=== PATIENT | female | born 1995 | race Hispanic/Latino ===

== ENCOUNTER 2021-09-10 22:50 | Emergency (ER) | payer OTHER ==
--- OUTSIDE RECORDS SUMMARY | 2021-09-10 22:55 | XMS REPORT | Continuity of Care Document ---
:1995 Author Organization [facility] Address [address] [place] [address] Care Team Providers Name Role Phone Reji Attending Clinician Unavailable MARCELA Attending Clinician Unavailable Reji Admitting Clinician Unavailable MARCELA Admitting Clinician Unavailable Payers Payer Name Policy Type Policy Number Effective Date Expiration Date S malina [facility] [id number] 2016 00:00:00 [facility] (MEDICAID HMO) Problems Condition Condition Condition Status Onset Resolution Last Treating Co mments Source Name Details Category Date Date Treatment Clinician Date External External Problem Active 2020-0 [place] hemorrhoid Hemorrhoid 6 da s s 00:00: Medical 00 Group Constipati Constipati Problem Active 2020-0 [facility] on on 01-14 da 00:00: Medical 00 Group Seasonal Seasonal Problem Active 2020-0 [place] [facility] allergic Allergic 1-20 da rhinitis Rhinitis 00:00: Medica l 00 Group Allergies, Adverse Reactions, Alerts This patient has no known allergies or adverse reactions. Social History Smoking Status Start Date Stop Date Source Never Smoker [facility] Medications Ordered Filled Start Stop Current Ordering Indication Dosage Frequency Signature Comments Components Source Medication Medication Date Date Medication? Clinician (SIG) Name Name CitraNatal CitraNatal No CitraNatal [place] 90 DHA 90 DHA 90 DHA da (algal oil) (algal oil) (algal Medical 90 mg 90 mg oil) 90 mg Group iron-1 iron-1 iron-1 mg-50 mg-50 mg-50 mg-300 mg mg-300 mg mg-300 mg oral pack oral pack oral pack Take 1 dose Take 1 dose Take 1 pk by oral pk by oral dose pk by route for route for oral route 30 days. 30 days. for 30 days. clindamycin clindamycin No clindamyci [facility] HCl 300 mg HCl 300 mg n HCl 300 da capsule capsule mg capsule Med ical Take 1 Take 1 Take 1 Group capsule 3 capsule 3 capsule 3 times a day times a day times a by oral by oral day by route for 5 route for 5 oral route days. days. for 5 days. docusate docusate No 1capsul Q1D docusate [facility] sodium 100 sodium 100 e(s) sodium 100 da mg capsule mg capsule mg capsule Medical Take 1 Take 1 Take 1 Group capsule capsule capsule every day every day every day by oral by oral by oral route. route. route. ferrous ferrous No 1 Q1D ferrous [facility] gluconate gluconate gluconate da 240 mg (27 240 mg (27 240 mg (27 Medical mg iron) mg iron) mg iron) Shiva up tablet Take tablet Take tablet 1 tablet 1 tablet Take 1 every day every day tablet by oral by oral every day route. route. by oral route. ferrous ferrous No 1 Q1D ferrous [facility] sulfate 325 sulfate 325 sulfate da mg (65 mg mg (65 mg 325 mg (65 Medical iron) iron) mg iron) Group tablet Take tablet Take tablet 1 tablet 1 tablet Take 1 every day every day tablet by oral by oral every day route for route for by oral 30 days. 30 days. route for 30 days. Flucelvax Flucelvax No Flucelvax [place] Quad Quad Quad da Medical (PF) 60 mcg (PF) 60 mcg (PF) 60 Group (15 mcg x (15 mcg x mcg (15 4)/0.5 mL 4)/0.5 mL mcg x IM syringe IM syringe 4)/0.5 mL IM syringe fluconazole fluconazole No fluconazol [facility] 200 mg 200 mg e 200 mg da tablet Take tablet Take tablet Medical 1 tablet 1 tablet Take 1 Group every day every day tablet by oral by oral every day route for 3 route for 3 by oral days. days. route for 3 days. folic acid folic acid No folic acid [facility] 1 mg tablet 1 mg tablet 1 mg d a Take 1 Take 1 tablet Medical tablet tablet Take 1 Group every day every day tablet by oral by oral every day route. route. by oral route. hydrocortis hydrocortis No hydrocorti [place] one 2.5 % one 2.5 % sone 2.5 % da topical topical topical Medica l cream cream cream Group hydrocortis hydrocortis No hydrocorti [place] one 2.5 % one 2.5 % sone 2.5 % da topical topical topical Medica l cream with cream with cream with Group perineal perineal perineal applicator applicator applicator APPLY A APPLY A APPLY A THIN LAYER THIN LAYER THIN LAYER TO THE TO THE TO THE AFFECTED AFFECTED AFFECTED AREA(S) BY AREA(S) BY AREA(S) BY TOPICAL TOPICAL TOPICAL ROUTE 2-4 ROUTE 2-4 ROUTE 2-4 TIMESDAILY TIMESDAILY TIMESDAILY ibuprofen ibuprofen No ibuprofen [facility] 800 mg 800 mg 800 mg da tablet tablet tablet Medical Group omeprazole omeprazole No omeprazole [facility] 40 mg 40 mg 40 mg da capsule,del capsule,del capsule,de Medical ayed ayed layed Group release release release Take 1 Take 1 Take 1 capsule capsule capsule every day every day every day by oral by oral by oral route. route. route. ProAir HFA ProAir HFA No ProAir HFA [place] 90 90 90 da mcg/actuati mcg/actuati mcg/actuat Medical on aerosol on aerosol ion Shiva up inhaler inhaler aerosol Inhale 2 Inhale 2 inhaler puffs every puffs every Inhale 2 4 hours by 4 hours by puffs inhalation inhalation every 4 route. route. hours by inhalation route. Reglan 10 Reglan 10 No 1 Q6H Reglan 10 [place] mg tablet mg tablet mg tablet da Take 1 Take 1 Take 1 Medical tablet tablet tablet Group every 6 every 6 every 6 hours by hours by hours by oral route oral route oral route for 7 days. for 7 days. for 7 days. Sprintec Sprintec No 1 Q1D Sprintec [facility] (28) 0.25 (28) 0.25 (28) 0.25 da mg-35 mcg mg-35 mcg mg-35 mcg Medical tablet Take tablet Take tablet Group 1 tablet 1 tablet Take 1 every day every day tablet by oral by oral every day route. route. by oral route. True Metrix True Metrix No True M [facility] Glucose Glucose Metrix da Test Strip Test Strip Glucose Medical Take 1 Take 1 Test Strip Group strip 4 strip 4 Take 1 times a day times a day strip 4 by miscell. by miscell. times a route. route. day by miscell. route. TRUEplus TRUEplus No TRUEplus [facility] Lancets 30 Lancets 30 Lancets 30 da gauge gauge gauge Medical Group Immunizations Ordered Immunization Filled Immunization Date Status Commen ts Source Name Name HPV, quadrivalent HPV, quadrivalent 2009-12-26 Completed [place] 00:00:00 Medical Group Tdap Tdap 2009-12-26 Completed [place] 00:00:00 Medical Group HPV, quadrivalent HPV, quadrivalent 2009-08-28 Completed [place] 00:00:00 Medical Group HPV, quadrivalent HPV, quadrivalent 2009-02-25 Completed [place] 00:00:00 Medical Group MCV4, unspecified MCV4, unspecified 2009-02-25 Completed [place] formulation formulation 00:00:00 Medical Grou p Hep A, ped/adol, 2 Hep A, ped/adol, 2 2007-12-25 Completed [place] dose dose 00:00:00 Medical Group varicella varicella 2007-12-25 Completed [place] 00:00:00 Medical Group Hep A, ped/adol, 2 Hep A, ped/adol, 2 2006-10-17 Completed [place] dose dose 00:00:00 Medical Group MMR MMR 2001-07-18 Completed [place] 00:00:00 Medical Group MMR MMR 1998-07-16 Completed [place] 00:00:00 Medical Group varicella varicella 1998-07-16 Completed [place] 00:00:00 Medical Group Hep B, adolescent or Hep B, adolescent 1998-02-06 Completed [place] pediatric or pediatric 00:00:00 Medical Grou p Hep B, adolescent or Hep B, adolescent 1997 Completed [place] [facility] or pediatric 00:00:00 Medical Grou p Hep B, adolescent or Hep B, adolescent 1997 Completed [place] [facility] pediatric 00:00:00 Medical Grou p Vital Signs Vital Name Observation Time Observation Value Comments Source BP Diastolic 2020-03-24 00:00:00 83 mm[Hg] [facility] Height 2020-03-24 00:00:00 60 [in_i] [facility] BMI (Body Mass 2020-03-24 00:00:00 28.3 kg/m2 [facility] Medical Index) Group BP Systolic 2020-03-24 00:00:00 123 mm[Hg] [facility] Body Weight 2020-03-24 00:00:00 145.1 [lb_av] [facility] BP Diastolic 2020-02-25 00:00:00 73 mm[Hg] [facility] Height 2020-02-25 00:00:00 60 [in_i] [facility] BMI (Body Mass 2020-02-25 00:00:00 31.1 kg/m2 [facility] Medical Index) Group BP Systolic 2020-02-25 00:00:00 108 mm[Hg] [facility] Body Weight 2020-02-25 00:00:00 159 [lb_av] [facility] BP Diastolic 2020-02-19 00:00:00 74 mm[Hg] [facility] Height 2020-02-19 00:00:00 60 [in_i] [facility] BP Systolic 2020-02-19 00:00:00 110 mm[Hg] [facility] Body Weight 2020-02-19 00:00:00 153.9 [lb_av] [facility] BP Diastolic 2020-02-12 00:00:00 71 mm[Hg] [facility] Height 2020-02-12 00:00:00 60 [in_i] [facility] BMI (Body Mass 2020-02-12 00:00:00 29.7 kg/m2 [facility] Medical Index) Group BP Systolic 2020-02-12 00:00:00 108 mm[Hg] [facility] Body Weight 2020-02-12 00:00:00 152 [lb_av] [facility] BP Diastolic 2020-01-29 00:00:00 74 mm[Hg] [facility] Height 2020-01-29 00:00:00 60 [in_i] [facility] BP Systolic 2020-01-29 00:00:00 111 mm[Hg] [facility] Body Weight 2020-01-29 00:00:00 152 [lb_av] [facility] BP Diastolic 2020-01-22 00:00:00 66 mm[Hg] [facility] Height 2020-01-22 00:00:00 60 [in_i] [facility] BMI (Body Mass 2020-01-22 00:00:00 29.4 kg/m2 [facility] Medical Index) Group BP Systolic 2020-01-22 00:00:00 116 mm[Hg] [facility] Body Weight 2020-01-22 00:00:00 150.6 [lb_av] [facility] BP Diastolic 2020-01-15 00:00:00 72 mm[Hg] [facility] Height 2020-01-15 00:00:00 60 [in_i] [facility] BMI (Body Mass 2020-01-15 00:00:00 28.9 kg/m2 [facility] Medical Index) Group BP Systolic 2020-01-15 00:00:00 108 mm[Hg] [facility] Body Weight 2020-01-15 00:00:00 147.8 [lb_av] [facility] BP Diastolic 2019-12-18 00:00:00 86 mm[Hg] [facility] Height 2019-12-18 00:00:00 60 [in_i] [facility] BMI (Body Mass 2019-12-18 00:00:00 28.1 kg/m2 [facility] Medical Index) Group BP Systolic 2019-12-18 00:00:00 133 mm[Hg] [facility] Body Weight 2019-12-18 00:00:00 144 [lb_av] [facility] BP Diastolic 2019-10-22 00:00:00 68 mm[Hg] [facility] Height 2019-10-22 00:00:00 60 [in_i] [facility] BMI (Body Mass 2019-10-22 00:00:00 28 kg/m2 [facility] Medical Index) Group BP Systolic 2019-10-22 00:00:00 110 mm[Hg] [facility] Body Weight 2019-10-22 00:00:00 143.4 [lb_av] [facility] BP Diastolic 2019-09-24 00:00:00 76 mm[Hg] [facility] Height 2019-09-24 00:00:00 60 [in_i] [facility] BMI (Body Mass 2019-09-24 00:00:00 27.5 kg/m2 [facility] Medical Index) Group BP Systolic 2019-09-24 00:00:00 114 mm[Hg] [facility] Body Weight 2019-09-24 00:00:00 141 [lb_av] [facility] BP Diastolic 2019-09-14 00:00:00 87 mm[Hg] [facility] Height 2019-09-14 00:00:00 60 [in_i] [facility] BMI (Body Mass 2019-09-14 00:00:00 27.2 kg/m2 [facility] Medical Index) Group BP Systolic 2019-09-14 00:00:00 127 mm[Hg] [facility] Body Weight 2019-09-14 00:00:00 139.1 [lb_av] [facility] BP Diastolic 2019-09-11 00:00:00 77 mm[Hg] [facility] Height 2019-09-11 00:00:00 60 [in_i] [facility] BMI (Body Mass 2019-09-11 00:00:00 27.6 kg/m2 [facility] Medical Index) Group BP Systolic 2019-09-11 00:00:00 144 mm[Hg] [facility] Body Weight 2019-09-11 00:00:00 2259.2 [oz_av] [facility] BP Diastolic 2019-09-03 00:00:00 72 mm[Hg] [facility] Height 2019-09-03 00:00:00 60 [in_i] [facility] BMI (Body Mass 2019-09-03 00:00:00 28.1 kg/m2 [facility] Medical Index) Group BP Systolic 2019-09-03 00:00:00 116 mm[Hg] [facility] Body Weight 2019-09-03 00:00:00 144 [lb_av] [facility] BP Diastolic 2019-08-14 00:00:00 75 mm[Hg] [facility] Height 2019-08-14 00:00:00 60 [in_i] [facility] BMI (Body Mass 2019-08-14 00:00:00 28.5 kg/m2 [facility] Medical Index) Group BP Systolic 2019-08-14 00:00:00 124 mm[Hg] [facility] Body Weight 2019-08-14 00:00:00 145.8 [lb_av] [facility] BP Diastolic 2019-08-01 00:00:00 74 mm[Hg] [facility] Height 2019-08-01 00:00:00 60 [in_i] [facility] BMI (Body Mass 2019-08-01 00:00:00 28.5 kg/m2 [facility] registered medical assistant Medical Index) Group BP Systolic 2019-08-01 00:00:00 120 mm[Hg] [facility] Body Weight 2019-08-01 00:00:00 146 [lb_av] [facility] BP Diastolic 2018-07-31 00:00:00 76 mm[Hg] [facility] Height 2018-07-31 00:00:00 60 [in_i] [facility] BMI (Body Mass 2018-07-31 00:00:00 30.1 kg/m2 [facility] Medical Index) Group BP Systolic 2018-07-31 00:00:00 112 mm[Hg] [facility] Body Weight 2018-07-31 00:00:00 154 [lb_av] [facility] Procedures Procedure Date / Time Performing Clinician Source Performed US, obstetric, limited 2020-02-12 00:00:00 [facility] ord Medical Group US, obstetric, limited 2020-01-15 00:00:00 [facility] ord Medical Group non-stress test 2020-01-15 00:00:00 [facility] dical Group US, obstetric, limited 2019-12-20 00:00:00 [facility] ord Medical Group US, obstetric, limited 2019-12-18 00:00:00 [facility] ord Medical Group US, obstetric, limited 2019-11-27 00:00:00 [facility] Medical Group US, obstetric, limited 2019-11-20 00:00:00 [facility] ord Medical [facility] ULTRASOUND, 2019-09-24 00:00:00 [facility] UTERUS REAL TIME WITH Group IMAGE DOC, AND MATERNAL EVAL PLUS DETAILED ANATOMIC EXAMINATION, TRANSABDOMINAL APPROACH; SINGLE OR FIRST GESTATION US, obstetric, limited 2019-09-24 00:00:00 [facility] US, obstetric, limited 2019-09-03 00:00:00 [facility] US, obstetric, limited 2019-08-14 00:00:00 [facility] ULTRASOUND, 2019-08-01 00:00:00 [facility] UTERUS REAL TIME WITH Group IMAGE DOCUMENTAITON, TRANSVAGINAL Plan of Care Planned Activity Planned Date Details Comments Source Diagnostic Test 2020-03-24 urinalysis, [facility] [facility] dical Pending 00:00:00 dipstick [code = Group urinalysis, dipstick] Encounters Start End Encounter Admission Attending Care Care Encounter Source Date/Time Date/Time Type Type Clinicians Facility Department ID 2020-07-02 2020-07-02 Outpatient [facility] 2019 [facility] 02:19:00 02:19:00 [id number] [facility] 2020-03-24 2020-03-24 [facility] 2019 [place] 07:34:00 07:34:00 0810 [facility] 2020-03-24 2020-03-24 Khanh DEL REAL [place] - [id number] [facility] 00:00:00 00:00:00 [facility] citlaly Massey MD: [address] [place] [phone] , Ph. [phone] 2020-03-04 2020-03-04 [facility] 2019 [place] 11:14:00 11:14:00 0721 [facility] 2020-02-25 2020-02-25 Out[facility] 2019 [place] 07:24:00 07:24:00 0713 [facility] 2020-02-25 2020-02-25 Khanh DEL REAL [place] - [id number] [facility] 00:00:00 00:00:00 Discovery citlaly Massey MD: [address] [place] [phone] , Ph. [phone] 2020-02-20 2020-02-20 Out[facility] 2019 [place] 10:13:00 10:13:00 0710 [facility] 2020-02-19 2020-02-19 Outpatient [facility] [id number] [place] 11:55:00 11:55:00 0707 [facility] 2020-02-19 2020-02-19 Khanh GUST[place]FSONG [place] - [id number] [facility] 00:00:00 00:00:00 Discovery citlaly Massey MD: [address] [place] [address] , Ph. [phone] 2020-02-13 2020-02-13 Outpatient [facility] 2019 [place] 09:44:00 09:44:00 0701 [facility] 2020-02-13 2020-02-13 Outpatient [facility] 2019 [place] 09:44:00 09:44:00 0706 [facility] 2020-02-12 2020-02-12 Outpatient [facility] 2019 [place] 03:52:00 03:52:00 0630 [facility] 2020-02-12 2020-02-12 Khanh SJ [place] - [id number] [facility] 00:00:00 00:00:00 Discovery citlaly Massey MD: [address] [place] [phone] , Ph. [phone] 2020-01-31 2020-01-31 Outpatient [facility] 2019 [place] 06:11:00 06:11:00 0619 [facility] 2020-01-31 2020-01-31 Outpatient [facility] [id number] [place] 06:11:00 06:11:00 0629 [facility] 2020-01-29 2020-01-29 Outpatient [facility] [id number] [place] 09:20:00 09:20:00 0616 [facility] 2020-01-29 2020-01-29 Khanh [place]UST[place]FS[place] - [id number] [facility] 00:00:00 00:00:00 Discovery citlaly Massey MD: [address] [place] [phone] , Ph. [phone] 2020-01-22 2020-01-22 Outpatient [facility] MM[facility] [id number] [place] 08:37:00 08:37:00 0609 Medical Group 2020-01-22 2020-01-22 Outpatient [facility] MM 2019 [place] 08:37:00 08:37:00 0615 [facility] 2020-01-22 2020-01-22 Khanh GUST[place]FS[place] - [id number] [facility] 00:00:00 00:00:00 Discovery citlaly Massey MD: [address] [place] [phone] , Ph. [phone] 2020-01-16 2020-01-16 Outpatient [facility] MM 2019 [place] 04:05:00 04:05:00 0608 Medical Group 2020-01-15 2020-01-15 Outpatient [facility]G 2019 [place] 10:45:00 10:45:00 0602 [facility] 2020-01-15 2020-01-15 Ashley Rodriguez [facility] [place] - [id number] [place] 00:00:00 00:00:00 Discovery Xavi Bianchi: [address] [address] , Ph. [phone] 2019-12-18 2019-12-18 Outpatient [facility] MM[facility] [id number] [place] 07:10:00 07:10:00 0505 Medical Group 2019-12-18 2019-12-18 Taty MM [place] - [id number] [facility] 00:00:00 00:00:00 Pawan Barksdale Medickamilla zepeda MD: [address] [place] [address], [place] [address] , Ph. [phone] 2019-11-23 2019-11-23 Outpatient [facility] [id number] [place] 04:11:00 04:11:00 0504 [facility] 2019-11-20 2019-11-20 Outpatient [facility]G [id number] [place] 08:14:00 08:14:00 0407 [facility] 2019-11-20 2019-11-20 Taty MMG [place] - [id number] [facility] 00:00:00 00:00:00 Bernardo [facility] MD: [address] [place] [phone] , Ph. [phone] 2019-10-24 2019-10-24 Outpatient [facility]G [id number] [place] 06:00:00 06:00:00 0311 [facility] 2019-10-22 2019-10-22 Outpatient [facility] 2019 [place] 04:05:00 04:05:00 0309 [facility] 2019-10-22 2019-10-22 Taty MMG [place] - [id number] [facility] 00:00:00 00:00:00 Bernardo [facility] MD: [address] [place] [phone] , Ph. [phone] 2019-09-27 2019-09-27 Outpatient [facility] 2019 [place] 10:24:00 10:24:00 0213 [facility] 2019-09-24 2019-09-24 Outpatient [facility]G [id number] [place] 03:55:00 03:55:00 0210 [facility] 2019-09-24 2019-09-24 Khanh MMG [place] - [id number] [facility] 00:00:00 00:00:00 Discovery citlaly Massey MD: [address] [place], [place] [address] , Ph. [phone] 2019-09-20 2019-09-20 Outpatient DICLEMENTE_ [facility] 769 [place] 04:13:00 04:13:00 MARSHA 0210 [facility] 2019-09-17 2019-09-17 Outpatient [facility] 2019 [place] 10:05:00 10:05:00 0203 Medical Group 2019-09-17 2019-09-17 Outpatient [facility] MM 2019 [place] 10:05:00 10:05:00 0207 Medical Group 2019-09-14 2019-09-14 Outpatient [facility] MM 2019 [place] 12:10:00 12:10:00 0131 Medical [facility] 2019-09-14 2019-09-14 Khanh [facility] [place] - [id number] M [facility] 00:00:00 00:00:00 Discovery citlaly Massey MD: [address] [place] [address], [place] [address] , Ph. [phone] 2019-09-11 2019-09-11 Outpatient [facility] 2019 [place] 06:59:00 06:59:00 0128 [facility] 2019-09-11 2019-09-11 Alma [facility] [place] - [id number] M [facility] 00:00:00 00:00:00 Alexandra Camacho [facility] Medical DIRECTOR SUPPLY: [address] [facility] [address] [address] , Ph. 2019-09-05 2019-09-05 Outpatient [facility] MM 2019 [place] 09:39:00 09:39:00 0122 Medical Group 2019-09-03 2019-09-03 Outpatient [facility] MM 2019 [place] 12:39:00 12:39:00 0120 Medical [facility] 2019-09-03 2019-09-03 Ashley Rodriguez [facility] [place] - [id number] [place] 00:00:00 00:00:00 Discovery citlaly Bianchi NP: [address] [place] [phone] , Ph. [phone] 2019-08-30 2019-08-30 Outpatient [facility] 2019 [place] 02:08:00 02:08:00 0117 [facility] 2019-08-27 2019-08-27 Outpatient [facility] 2019 [place] 10:51:00 10:51:00 0113 [facility] 2019-08-17 2019-08-17 Outpatient [facility] 2019 [place] 11:27:00 11:27:00 0103 [facility] 2019-08-14 2019-08-14 Khanh DEL REAL [place] - [id number] M [facility] 00:00:00 00:00:00 Discovery citlaly Massey MD: [address] [place] [phone] , Ph. [phone] 2019-08-01 2019-08-01 Khanh DEL REAL [place] - [id number] M [facility] 00:00:00 00:00:00 Discovery citlaly Massey MD: [address] [place] [address] , Ph. [phone] 2018-07-31 2018-07-31 Khanh DEL REAL [place] - [id number] [facility] 00:00:00 00:00:00 Discovery citlaly Massey MD: [address] [place] [address] [place] [address] , Ph. [phone] Results Test Description Test Time Test Comments Results Result Comments Source Urinalysis macro (dipstick) panel - Urine 2020-03-24 13:45:4 9 Test Item Value Reference Range Interpretation Comme nts Leukocytes (test code = Leukocytes) Negative Nitrite (test code = Nitrite) negative Urobilinogen (test code = Urobilinogen) .2 Protein (test code = Protein) Negative pH (test code = pH) 6.5 Blood (test code = Blood) Large Specific [place] (test code = Specific [place]) 1.020 Ketone (test code = Ketone) Negative Bilirubin (test code = Bilirubin) Negative Glucose (test code = Glucose) Negative Appearance (test code = Appearance) Clear Color (test code = Color) Yellow [facility] W Auto Differential panel - [id number] 11:52:00 Test Item Value Reference Range Interpretation Comments white blood count (test code = 9.8 K/uL 4.0-11.5 white blood count) red blood count (test code = red 3.63 M/uL 3.80-5.20 L blood count) hemoglobin (test code = 9.9 g/dL 10.5-15.7 L hemoglobin) hematocrit (test code = 30.4 % 34.0-50.0 L hematocrit) MCV [Entitic volume] (test code = 83.7 fL 86-100 L 56077-2) mean corpuscular hemoglobin (test 27.3 pg 26.2-33.4 code = mean corpuscular hemoglobin) mean corpuscular HGB conc (test 32.6 g/dL 30-34 code = mean corpuscular HGB conc) red cell distribution width (test 13.1 % 12.0-15.5 code = red cell distribution width) platelet count (test code = 244 K/uL 165-450 platelet count) mean platelet volume (test code = 10.7 fL 9.4-12.6 mean platelet volume) Segmented neutrophils/100 60.8 % 44.4-80.1 leukocytes in Blood (test code = 20473-5) Immature granulocytes [#/volume] 0.0 K/uL 0.0-0.03 in Blood (test code = 80668-1) lymphocyte% (test code = 29.7 % 10.0-50.0 lymphocyte%) mono % (test code = mono %) 7.2 % 3.6-12.0 eos % (test code = eos %) 1.6 % 0.0-5.4 Basophils/100 leukocytes in 0.3 % 0.1-1.2 Unspecified specimen (test code = 36499-6) Band form neutrophils [#/volume] 5.94 K/uL 1.56-6.13 in Blood (test code = 48196-3) Lymphocytes [#/volume] in 2.9 K/uL 1.18-3.74 Unspecified specimen by Automated count (test code = 65160-0) mono # (test code = mono #) 0.70 K/uL 0.24-0.86 eos # (test code = eos #) 0.16 K/uL 0.04-0.36 basophil # (test code = basophil 0.03 K/uL 0.01-0.08 #) NRBC% (test code = NRBC%) 0 /100 WBC 0-0.2 NRBC# (test code = NRBC#) 0 K/uL [facility] W Auto Differential panel - [id number] 03:30:00 Test Item Value Reference Range Interpretation Comments white blood count (test code = 8.9 K/uL 4.0-11.5 white blood count) red blood count (test code = red 3.96 M/uL 3.80-5.20 blood count) hemoglobin (test code = 10.7 g/dL 10.5-15.7 hemoglobin) hematocrit (test code = 33.0 % 34.0-50.0 L hematocrit) MCV [Entitic volume] (test code = 83.3 fL 86-100 L 59230-4) mean corpuscular hemoglobin (test 27.0 pg 26.2-33.4 code = mean corpuscular hemoglobin) mean corpuscular HGB conc (test 32.4 g/dL 30-34 code = mean corpuscular HGB conc) red cell distribution width (test 13.1 % 12.0-15.5 code = red cell distribution width) platelet count (test code = 282 K/uL 165-450 platelet count) mean platelet volume (test code = 10.9 fL 9.4-12.6 mean platelet volume) Segmented neutrophils/100 64.0 % 44.4-80.1 leukocytes in Blood (test code = 42810-3) Immature granulocytes [#/volume] 0.0 K/uL 0.0-0.03 in Blood (test code = 83185-0) lymphocyte% (test code = 28.8 % 10.0-50.0 lymphocyte%) mono % (test code = mono %) 5.2 % 3.6-12.0 eos % (test code = eos %) 1.2 % 0.0-5.4 Basophils/100 leukocytes in 0.5 % 0.1-1.2 Unspecified specimen (test code = 26215-6) Band form neutrophils [#/volume] 5.66 K/uL 1.56-6.13 in Blood (test code = 20013-3) Lymphocytes [#/volume] in 2.6 K/uL 1.18-3.74 Unspecified specimen by Automated count (test code = 30460-5) mono # (test code = mono #) 0.46 K/uL 0.24-0.86 eos # (test code = eos #) 0.11 K/uL 0.04-0.36 basophil # (test code = basophil 0.04 K/uL 0.01-0.08 #) NRBC% (test code = NRBC%) 0 /100 WBC 0-0.2 NRBC# (test code = NRBC#) 0 K/uL [facility] [Mass/volume] in Serum or [id number] 03:30:00 Test Item Value Reference Range Interpretation Comments glucose (test code = glucose) 95 mg/dL 74-106 [facility] - Blood 2020-03-03 03:30:00 Test Item Value Reference Range Interpretation Comments Rh [Type] in Blood (test code = 4+ 95444-8) ABO and Rh group panel - Blood O positive (test code = 13700-3) [facility] GroupHepatitis B virus surface Ag [Presence] in Serum 2020-03-03 03:30:00 Test Item Value Reference Range Interpretation Comments .hepatitis B surface antigen (test negative negative code = .hepatitis B surface antigen) [facility] GroupReagin Ab [Presence] in Serum by [id number] 03:30:00 Test Item Value Reference Range Interpretation Comments Reagin Ab [Presence] in Serum by nonreactive nonreactive RPR (test code = 86408-4) [facility] GroupGlucose [Mass/volume] in Capillary [id number] 10:04:58 Test Item Value Reference Range Interpretation Comments GLU (test code = GLU) 83 [facility] GroupGlucose [Mass/volume] in Capillary [id number] 10:04:58 Test Item Value Reference Range Interpretation Comments GLU (test code = GLU) 83 [facility] GroupUrinalysis macro (dipstick) panel - [id number] 10:00:44 Test Item Value Reference Range Interpretation Comments Leukocytes (test code = Leukocytes) Negative Nitrite (test code = Nitrite) negative Urobilinogen (test code = 1 Urobilinogen) Protein (test code = Protein) Trace pH (test code = pH) 7.0 Blood (test code = Blood) Negative Specific [place] (test code = 1.025 Specific [place]) Ketone (test code = Ketone) Negative Bilirubin (test code = Bilirubin) Negative Glucose (test code = Glucose) Negative Appearance (test code = Appearance) Clear Color (test code = Color) Yellow [facility] GroupUrinalysis macro (dipstick) panel - [id number] 10:00:44 Test Item Value Reference Range Interpretation Comments Leukocytes (test code = Leukocytes) Negative Nitrite (test code = Nitrite) negative Urobilinogen (test code = 1 Urobilinogen) Protein (test code = Protein) Trace pH (test code = pH) 7.0 Blood (test code = Blood) Negative Specific [place] (test code = 1.025 Specific [place]) Ketone (test code = Ketone) Negative Bilirubin (test code = Bilirubin) Negative Glucose (test code = Glucose) Negative Appearance (test code = Appearance) Clear Color (test code = Color) Yellow [facility] GroupGlucose [Mass/volume] in Capillary [id number] 14:26:58 Test Item Value Reference Range Interpretation Comments GLU (test code = GLU) 74 [facility] GroupGlucose [Mass/volume] in Capillary [id number] 14:26:58 Test Item Value Reference Range Interpretation Comments GLU (test code = GLU) 74 [facility] GroupUrinalysis macro (dipstick) panel - [id number] 14:26:43 Test Item Value Reference Range Interpretation Comments Leukocytes (test code = Leukocytes) Trace Nitrite (test code = Nitrite) negative Urobilinogen (test code = .2 Urobilinogen) Protein (test code = Protein) Trace pH (test code = pH) 7.0 Blood (test code = Blood) Negative Specific [place] (test code = 1.020 Specific [place]) Ketone (test code = Ketone) Negative Bilirubin (test code = Bilirubin) Negative Glucose (test code = Glucose) Negative Appearance (test code = Appearance) Clear Color (test code = Color) Yellow [facility] GroupUrinalysis macro (dipstick) panel - [id number] 14:26:43 Test Item Value Reference Range Interpretation Comments Leukocytes (test code = Leukocytes) Trace Nitrite (test code = Nitrite) negative Urobilinogen (test code = .2 Urobilinogen) Protein (test code = Protein) Trace pH (test code = pH) 7.0 Blood (test code = Blood) Negative Specific [place] (test code = 1.020 Specific [place]) Ketone (test code = Ketone) Negative Bilirubin (test code = Bilirubin) Negative Glucose (test code = Glucose) Negative Appearance (test code = Appearance) Clear Color (test code = Color) Yellow [facility] GroupUrinalysis macro (dipstick) panel - [id number] 14:59:50 Test Item Value Reference Range Interpretation Comments Leukocytes (test code = Leukocytes) Small Nitrite (test code = Nitrite) negative Urobilinogen (test code = 1 Urobilinogen) Protein (test code = Protein) 30 pH (test code = pH) 7.0 Blood (test code = Blood) Negative Specific [place] (test code = 1.020 Specific [place]) Ketone (test code = Ketone) Trace Bilirubin (test code = Bilirubin) Small Glucose (test code = Glucose) Negative Appearance (test code = Appearance) Clear Color (test code = Color) Yellow [facility] GroupUrinalysis macro (dipstick) panel - [id number] 14:59:50 Test Item Value Reference Range Interpretation Comments Leukocytes (test code = Leukocytes) Small Nitrite (test code = Nitrite) negative Urobilinogen (test code = 1 Urobilinogen) Protein (test code = Protein) 30 pH (test code = pH) 7.0 Blood (test code = Blood) Negative Specific [place] (test code = 1.020 Specific [place]) Ketone (test code = Ketone) Trace Bilirubin (test code = Bilirubin) Small Glucose (test code = Glucose) Negative Appearance (test code = Appearance) Clear Color (test code = Color) Yellow [facility] GroupUrinalysis macro (dipstick) panel - [id number] 14:59:50 Test Item Value Reference Range Interpretation Comments Leukocytes (test code = Leukocytes) Small Nitrite (test code = Nitrite) negative Urobilinogen (test code = 1 Urobilinogen) Protein (test code = Protein) 30 pH (test code = pH) 7.0 Blood (test code = Blood) Negative Specific [place] (test code = 1.020 Specific [place]) Ketone (test code = Ketone) Trace Bilirubin (test code = Bilirubin) Small Glucose (test code = Glucose) Negative Appearance (test code = Appearance) Clear Color (test code = Color) Yellow [facility] Auto Differential panel - [id number] 01:18:00 Test Item Value Reference Range Interpretation Comments white blood count (test code = 9.1 K/uL 4.0-11.5 white blood count) red blood count (test code = red 3.99 M/uL 3.80-5.20 blood count) hemoglobin (test code = 10.9 g/dL 10.5-15.7 hemoglobin) hematocrit (test code = 34.1 % 34.0-50.0 hematocrit) MCV [Entitic volume] (test code = 85.5 fL 86-100 L 15724-8) mean corpuscular hemoglobin (test 27.3 pg 26.2-33.4 code = mean corpuscular hemoglobin) mean corpuscular HGB conc (test 32.0 g/dL 30-34 code = mean corpuscular HGB conc) red cell distribution width (test 12.9 % 12.0-15.5 code = red cell distribution width) platelet count (test code = 294 K/uL 165-450 platelet count) mean platelet volume (test code = 11.5 fL 9.4-12.6 mean platelet volume) Segmented neutrophils/100 72.6 % 44.4-80.1 leukocytes in Blood (test code = 49290-7) Immature granulocytes [#/volume] 0.0 K/uL 0.0-0.03 in Blood (test code = 72022-0) lymphocyte% (test code = 20.7 % 10.0-50.0 lymphocyte%) mono % (test code = mono %) 5.0 % 3.6-12.0 eos % (test code = eos %) 1.1 % 0.0-5.4 Basophils/100 leukocytes in 0.3 % 0.1-1.2 Unspecified specimen (test code = 97249-5) Band form neutrophils [#/volume] 6.61 K/uL 1.56-6.13 H in Blood (test code = 40488-3) Lymphocytes [#/volume] in 1.9 K/uL 1.18-3.74 Unspecified specimen by Automated count (test code = 59859-9) mono # (test code = mono #) 0.46 K/uL 0.24-0.86 eos # (test code = eos #) 0.10 K/uL 0.04-0.36 basophil # (test code = basophil 0.03 K/uL 0.01-0.08 #) NRBC% (test code = NRBC%) 0 /100 WBC 0-0.2 NRBC# (test code = NRBC#) 0 K/uL [facility] GroupHemoglobin A1c [Mass/volume] in [id number] 01:18:00 Test Item Value Reference Range Interpretation Comments Hemoglobin A1c [Mass/volume] in Blood 5.6 % 4.0-6.0 (test code = 32184-4) [facility] W Auto Differential panel - [id number] 01:18:00 Test Item Value Reference Range Interpretation Comments white blood count (test code = 9.1 K/uL 4.0-11.5 white blood count) red blood count (test code = red 3.99 M/uL 3.80-5.20 blood count) hemoglobin (test code = 10.9 g/dL 10.5-15.7 hemoglobin) hematocrit (test code = 34.1 % 34.0-50.0 hematocrit) MCV [Entitic volume] (test code = 85.5 fL 86-100 L 22316-9) mean corpuscular hemoglobin (test 27.3 pg 26.2-33.4 code = mean corpuscular hemoglobin) mean corpuscular HGB conc (test 32.0 g/dL 30-34 code = mean corpuscular HGB conc) red cell distribution width (test 12.9 % 12.0-15.5 code = red cell distribution width) platelet count (test code = 294 K/uL 165-450 platelet count) mean platelet volume (test code = 11.5 fL 9.4-12.6 mean platelet volume) Segmented neutrophils/100 72.6 % 44.4-80.1 leukocytes in Blood (test code = 73101-7) Immature granulocytes [#/volume] 0.0 K/uL 0.0-0.03 in Blood (test code = 73613-2) lymphocyte% (test code = 20.7 % 10.0-50.0 lymphocyte%) mono % (test code = mono %) 5.0 % 3.6-12.0 eos % (test code = eos %) 1.1 % 0.0-5.4 Basophils/100 leukocytes in 0.3 % 0.1-1.2 Unspecified specimen (test code = 53912-2) Band form neutrophils [#/volume] 6.61 K/uL 1.56-6.13 H in Blood (test code = 66577-6) Lymphocytes [#/volume] in 1.9 K/uL 1.18-3.74 Unspecified specimen by Automated count (test code = 42257-5) mono # (test code = mono #) 0.46 K/uL 0.24-0.86 eos # (test code = eos #) 0.10 K/uL 0.04-0.36 basophil # (test code = basophil 0.03 K/uL 0.01-0.08 #) NRBC% (test code = NRBC%) 0 /100 WBC 0-0.2 NRBC# (test code = NRBC#) 0 K/uL [facility] GroupHemoglobin A1c/Hemoglobin.total in [id number] 01:18:00 Test Item Value Reference Range Interpretation Comments Hemoglobin A1c [Mass/volume] in Blood 5.6 % 4.0-6.0 (test code = 47146-4) [facility] W Auto Differential panel - [id number] 01:18:00 Test Item Value Reference Range Interpretation Comments white blood count (test code = 9.1 K/uL 4.0-11.5 white blood count) red blood count (test code = red 3.99 M/uL 3.80-5.20 blood count) hemoglobin (test code = 10.9 g/dL 10.5-15.7 hemoglobin) hematocrit (test code = 34.1 % 34.0-50.0 hematocrit) MCV [Entitic volume] (test code = 85.5 fL 86-100 L 89565-9) mean corpuscular hemoglobin (test 27.3 pg 26.2-33.4 code = mean corpuscular hemoglobin) mean corpuscular HGB conc (test 32.0 g/dL 30-34 code = mean corpuscular HGB conc) red cell distribution width (test 12.9 % 12.0-15.5 code = red cell distribution width) platelet count (test code = 294 K/uL 165-450 platelet count) mean platelet volume (test code = 11.5 fL 9.4-12.6 mean platelet volume) Segmented neutrophils/100 72.6 % 44.4-80.1 leukocytes in Blood (test code = 32989-9) Immature granulocytes [#/volume] 0.0 K/uL 0.0-0.03 in Blood (test code = 23613-7) lymphocyte% (test code = 20.7 % 10.0-50.0 lymphocyte%) mono % (test code = mono %) 5.0 % 3.6-12.0 eos % (test code = eos %) 1.1 % 0.0-5.4 Basophils/100 leukocytes in 0.3 % 0.1-1.2 Unspecified specimen (test code = 89534-4) Band form neutrophils [#/volume] 6.61 K/uL 1.56-6.13 H in Blood (test code = 42649-3) Lymphocytes [#/volume] in 1.9 K/uL 1.18-3.74 Unspecified specimen by Automated count (test code = 08625-8) mono # (test code = mono #) 0.46 K/uL 0.24-0.86 eos # (test code = eos #) 0.10 K/uL 0.04-0.36 basophil # (test code = basophil 0.03 K/uL 0.01-0.08 #) NRBC% (test code = NRBC%) 0 /100 WBC 0-0.2 NRBC# (test code = NRBC#) 0 K/uL [facility] GroupHemoglobin A1c/Hemoglobin.total in [id number] 01:18:00 Test Item Value Reference Range Interpretation Comments Hemoglobin A1c [Mass/volume] in Blood 5.6 % 4.0-6.0 (test code = 65620-5) [facility] GroupGlucose [Mass/volume] in Capillary [id number] 14:15:01 Test Item Value Reference Range Interpretation Comments GLU (test code = GLU) 89 [facility] GroupGl[facility] [Mass/volume] in Capillary [id number] 14:15:01 Test Item Value Reference Range Interpretation Comments GLU (test code = GLU) 89 [facility] GroupGlucose [Mass/volume] in Capillary [id number] 14:15:01 Test Item Value Reference Range Interpretation Comments GLU (test code = GLU) 89 [facility] GroupGlucose [Mass/volume] in Capillary [id number] 14:15:01 Test Item Value Reference Range Interpretation Comments GLU (test code = GLU) 89 [facility] GroupUrinalysis macro (dipstick) panel - [id number] 14:04:42 Test Item Value Reference Range Interpretation Comments Leukocytes (test code = Leukocytes) Large Nitrite (test code = Nitrite) negative Urobilinogen (test code = .2 Urobilinogen) Protein (test code = Protein) Trace pH (test code = pH) 8.5 Blood (test code = Blood) Negative Specific [place] (test code = 1.020 Specific [place]) Ketone (test code = Ketone) Negative Bilirubin (test code = Bilirubin) Negative Glucose (test code = Glucose) Negative Appearance (test code = Appearance) Cloudy Color (test code = Color) Yellow [facility] GroupUrinalysis macro (dipstick) panel - [id number] 14:04:42 Test Item Value Reference Range Interpretation Comments Leukocytes (test code = Leukocytes) Large Nitrite (test code = Nitrite) negative Urobilinogen (test code = .2 Urobilinogen) Protein (test code = Protein) Trace pH (test code = pH) 8.5 Blood (test code = Blood) Negative Specific [place] (test code = 1.020 Specific [place]) Ketone (test code = Ketone) Negative Bilirubin (test code = Bilirubin) Negative Glucose (test code = Glucose) Negative Appearance (test code = Appearance) Cloudy Color (test code = Color) Yellow [facility] GroupUrinalysis macro (dipstick) panel - [id number] 14:04:42 Test Item Value Reference Range Interpretation Comments Leukocytes (test code = Leukocytes) Large Nitrite (test code = Nitrite) negative Urobilinogen (test code = .2 Urobilinogen) Protein (test code = Protein) Trace pH (test code = pH) 8.5 Blood (test code = Blood) Negative Specific [place] (test code = 1.020 Specific [place]) Ketone (test code = Ketone) Negative Bilirubin (test code = Bilirubin) Negative Glucose (test code = Glucose) Negative Appearance (test code = Appearance) Cloudy Color (test code = Color) Yellow [facility] GroupUrinalysis macro (dipstick) panel - [id number] 14:04:42 Test Item Value Reference Range Interpretation Comments Leukocytes (test code = Leukocytes) Large Nitrite (test code = Nitrite) negative Urobilinogen (test code = .2 Urobilinogen) Protein (test code = Protein) Trace pH (test code = pH) 8.5 Blood (test code = Blood) Negative Specific [place] (test code = 1.020 Specific [place]) Ketone (test code = Ketone) Negative Bilirubin (test code = Bilirubin) Negative Glucose (test code = Glucose) Negative Appearance (test code = Appearance) Cloudy Color (test code = Color) Yellow [facility] Groupculture, vaginal/rectal, streptococcus group [id number] 00:00:00 Test Item Value Reference Range Interpretation Comments group B strep (test code = group B normal strep) [facility] Groupculture, vaginal/rectal, streptococcus group [id number] 00:00:00 Test Item Value Reference Range Interpretation Comments group B strep (test code = group B normal strep) [facility] Groupculture, vaginal/rectal, streptococcus group [id number] 00:00:00 Test Item Value Reference Range Interpretation Comments group B strep (test code = group B normal strep) [facility] GroupUrinalysis macro (dipstick) panel - [id number] 13:56:00 Test Item Value Reference Range Interpretation Comments Leukocytes (test code = Leukocytes) Negative Nitrite (test code = Nitrite) negative Urobilinogen (test code = 1 Urobilinogen) Protein (test code = Protein) Trace pH (test code = pH) 8.0 Blood (test code = Blood) Negative Specific [place] (test code = 1.020 Specific [place]) Ketone (test code = Ketone) Negative Bilirubin (test code = Bilirubin) Negative Glucose (test code = Glucose) Negative Appearance (test code = Appearance) Clear Color (test code = Color) Yellow [facility] GroupUrinalysis macro (dipstick) panel - [id number] 13:56:00 Test Item Value Reference Range Interpretation Comments Leukocytes (test code = Leukocytes) Negative Nitrite (test code = Nitrite) negative Urobilinogen (test code = 1 Urobilinogen) Protein (test code = Protein) Trace pH (test code = pH) 8.0 Blood (test code = Blood) Negative Specific [place] (test code = 1.020 Specific [place]) Ketone (test code = Ketone) Negative Bilirubin (test code = Bilirubin) Negative Glucose (test code = Glucose) Negative Appearance (test code = Appearance) Clear Color (test code = Color) Yellow [facility] GroupUrinalysis macro (dipstick) panel - [id number] 13:56:00 Test Item Value Reference Range Interpretation Comments Leukocytes (test code = Leukocytes) Negative Nitrite (test code = Nitrite) negative Urobilinogen (test code = 1 Urobilinogen) Protein (test code = Protein) Trace pH (test code = pH) 8.0 Blood (test code = Blood) Negative Specific [place] (test code = 1.020 Specific [place]) Ketone (test code = Ketone) Negative Bilirubin (test code = Bilirubin) Negative Glucose (test code = Glucose) Negative Appearance (test code = Appearance) Clear Color (test code = Color) Yellow [facility] GroupUrinalysis macro (dipstick) panel - [id number] 13:56:00 Test Item Value Reference Range Interpretation Comments Leukocytes (test code = Leukocytes) Negative Nitrite (test code = Nitrite) negative Urobilinogen (test code = 1 Urobilinogen) Protein (test code = Protein) Trace pH (test code = pH) 8.0 Blood (test code = Blood) Negative Specific [place] (test code = 1.020 Specific [place]) Ketone (test code = Ketone) Negative Bilirubin (test code = Bilirubin) Negative Glucose (test code = Glucose) Negative Appearance (test code = Appearance) Clear Color (test code = Color) Yellow [facility] GroupGlucose [Mass/volume] in Capillary [id number] 13:48:00 Test Item Value Reference Range Interpretation Comments GLU (test code = GLU) 84 [facility] GroupGlucose [Mass/volume] in Capillary [id number] 13:48:00 Test Item Value Reference Range Interpretation Comments GLU (test code = GLU) 84 [facility] GroupGlucose [Mass/volume] in Capillary [id number] 13:48:00 Test Item Value Reference Range Interpretation Comments GLU (test code = GLU) 84 [facility] GroupGlucose [Mass/volume] in Capillary [id number] 13:48:00 Test Item Value Reference Range Interpretation Comments GLU (test code = GLU) 84 [facility] GroupChlamydia trachomatis+Neisseria gonorrhoeae DNA [Presence] in Urine by ODESSA with probe [id number] 02:45:00 Test Item Value Reference Range Interpretation Comments Chlamydia sp Ag [Presence] in CT not detected Unspecified specimen (test code = 71793-3) [id number] (test code = coo8954) NG not detected [facility] GroupChlamydia trachomatis+Neisseria gonorrhoeae DNA [Presence] in Urine by ODESSA with probe [id number] 02:45:00 Test Item Value Reference Range Interpretation Comments Chlamydia sp Ag [Presence] in CT not detected Unspecified specimen (test code = 51106-6) [id number] (test code = xwi1471) NG not detected [facility] GroupChlamydia trachomatis+Neisseria gonorrhoeae DNA [Presence] in Urine by ODESSA with probe [id number] 02:45:00 Test Item Value Reference Range Interpretation Comments Chlamydia sp Ag [Presence] in CT not detected Unspecified specimen (test code = 16035-8) [id number] (test code = cyw1874) NG not detected [facility] GroupHemoglobin A1c [Mass/volume] in [id number] 09:29:00 Test Item Value Reference Range Interpretation Comments Hemoglobin A1c [Mass/volume] in Blood 5.2 % 4.0-6.0 (test code = 44869-5) [facility] GroupHemoglobin A1c [Mass/volume] in [id number] 09:29:00 Test Item Value Reference Range Interpretation Comments Hemoglobin A1c [Mass/volume] in Blood 5.2 % 4.0-6.0 (test code = 00140-7) [facility] GroupHemoglobin A1c [Mass/volume] in [id number] 09:29:00 Test Item Value Reference Range Interpretation Comments Hemoglobin A1c [Mass/volume] in Blood 5.2 % 4.0-6.0 (test code = 57656-2) [facility] GroupCT + NG + TV, DNA, urine/[id number] 00:00:00 Test Item Value Reference Range Interpretation Comments chlamydia trachomatis by real-time negative PCR (reflex to azithromycin resistance by pyrosequencing) (test code = chlamydia trachomatis by real-time PCR (reflex to azithromycin resistance by pyrosequencing)) trichomonas vaginalis by real-time negative PCR (reflex to metronidazole resistance) (test code = trichomonas vaginalis by real-time PCR (reflex to metronidazole resistance)) neisseria gonorrhoeae by real-time negative PCR (reflex to antibiotic resistance by molecular analysis) (test code = neisseria gonorrhoeae by real-time PCR (reflex to antibiotic resistance by molecular analysis)) [facility] GroupCandida sp DNA [Presence] in Vaginal fluid by ODESSA with probe [id number] 00:00:00 Test Item Value Reference Range Interpretation Comments lynette albicans by real-time PCR negative (test code = lynette albicans by real-time PCR) lynette tropicalis by real-time PCR negative (test code = lynette tropicalis by real-time PCR) lynette parapsilosis by real-time negative PCR (test code = lynette parapsilosis by real-time PCR) lynette glabrata by real-time PCR negative (test code = lynette glabrata by real-time PCR) [facility] GroupThyrotropin [Units/volume] in Serum or [id number] 08:09:00 Test Item Value Reference Range Interpretation Comments Thyrotropin [Units/volume] in 2.78 uIU/mL 0.36-3.74 Serum or Plasma (test code = 3016-3) [facility] GroupThyroxine (T4) free [Mass/volume] in Serum or Plasma 2019-12-18 08:09:00 Test Item Value Reference Range Interpretation Comments free T4 (test code = free T4) 1.06 NG/dL 0.93-1.7 [facility] W Auto Differential panel - [id number] 06:55:00 Test Item Value Reference Range Interpretation Comments white blood count (test code = 8.9 K/uL 4.0-11.5 white blood count) red blood count (test code = red 3.77 M/uL 3.80-5.20 L blood count) hemoglobin (test code = 10.9 g/dL 10.5-15.7 hemoglobin) hematocrit (test code = 33.2 % 34.0-50.0 L hematocrit) MCV [Entitic volume] (test code = 88.1 fL 86-100 48345-3) mean corpuscular hemoglobin (test 28.9 pg 26.2-33.4 code = mean corpuscular hemoglobin) mean corpuscular HGB conc (test 32.8 g/dL 30-34 code = mean corpuscular HGB conc) red cell distribution width (test 12.6 % 12.0-15.5 code = red cell distribution width) platelet count (test code = 259 K/uL 165-450 platelet count) mean platelet volume (test code = 10.6 fL 9.4-12.6 mean platelet volume) Segmented neutrophils/100 65.1 % 44.4-80.1 leukocytes in Blood (test code = 80860-9) Immature granulocytes [#/volume] 0.0 K/uL 0.0-0.03 in Blood (test code = 03930-2) lymphocyte% (test code = 26.7 % 10.0-50.0 lymphocyte%) mono % (test code = mono %) 5.0 % 3.6-12.0 eos % (test code = eos %) 2.5 % 0.0-5.4 Basophils/100 leukocytes in 0.3 % 0.1-1.2 Unspecified specimen (test code = 48924-5) Band form neutrophils [#/volume] 5.81 K/uL 1.56-6.13 in Blood (test code = 79681-6) Lymphocytes [#/volume] in 2.4 K/uL 1.18-3.74 Unspecified specimen by Automated count (test code = 16246-1) mono # (test code = mono #) 0.45 K/uL 0.24-0.86 eos # (test code = eos #) 0.22 K/uL 0.04-0.36 basophil # (test code = basophil 0.03 K/uL 0.01-0.08 #) NRBC% (test code = NRBC%) 0 /100 WBC 0-0.2 NRBC# (test code = NRBC#) 0 K/uL [facility] GroupBlood group antibody screen [Presence] in Serum or Plasma 2019-12-18 06:55:00 Test Item Value Reference Range Interpretation Comments Blood group antibody screen negative [Presence] in Serum or Plasma (test code = 890-4) [facility] GroupHIV 1+2 Ab [Presence] in [id number] 06:55:00HIV P24 AgHIV-1/2 [facility]Ma[facility] GroupReagin Ab [Presence] in Serum by RPR 2019-12-18 06:55:00 Test Item Value Reference Range Interpretation Comments Reagin Ab [Presence] in Serum by nonreactive nonreactive RPR (test code = 06081-2) [facility] GroupUrinalysis macro (dipstick) panel - [id number] 14:36:27 Test Item Value Reference Range Interpretation Comments Leukocytes (test code = Leukocytes) Trace Nitrite (test code = Nitrite) negative Urobilinogen (test code = 1 Urobilinogen) Protein (test code = Protein) 30 pH (test code = pH) 7.0 Blood (test code = Blood) Negative Specific [place] (test code = 1.025 Specific [place]) Ketone (test code = Ketone) Trace Bilirubin (test code = Bilirubin) Small Glucose (test code = Glucose) Negative Appearance (test code = Appearance) Clear Color (test code = Color) Yellow [facility] GroupUrinalysis macro (dipstick) panel - [id number] 14:36:27 Test Item Value Reference Range Interpretation Comments Leukocytes (test code = Leukocytes) Trace Nitrite (test code = Nitrite) negative Urobilinogen (test code = 1 Urobilinogen) Protein (test code = Protein) 30 pH (test code = pH) 7.0 Blood (test code = Blood) Negative Specific [place] (test code = 1.025 Specific [place]) Ketone (test code = Ketone) Trace Bilirubin (test code = Bilirubin) Small Glucose (test code = Glucose) Negative Appearance (test code = Appearance) Clear Color (test code = Color) Yellow [facility] (A+B)2019-09-11 14:21:00 Test Item Value Reference Range Interpretation Comments Flu (test code = Flu) negative [facility] Grouprapid strep group A, [id number] 14:21:00 Test Item Value Reference Range Interpretation Comments Strep Result (test code = Strep negative Result) [facility] Grouprapid flu (A+B)2019-09-11 14:21:00 Test Item Value Reference Range Interpretation Comments Flu (test code = Flu) negative [facility] Group[facility] strep group A, [id number] 14:21:00 Test Item Value Reference Range Interpretation Comments Strep Result (test code = Strep negative Result) [facility] Grouprap[facility] flu (A+B)2019-09-11 14:21:00 Test Item Value Reference Range Interpretation Comments Flu (test code = Flu) [facility], [id number] 14:21:00 Test Item Value Reference Range Interpretation Comments Strep Result (test code = Strep negative Result) [facility] GroupChromosome 13+18+21+X+Y aneuploidy in Blood by Molecular genetics method [id number] 00:00:00 Test Item Value Reference Range Interpretation Comments report summary (test code = see notes report summary) report note (test code = see notes report note) trisomy 13 age-based risk score (test code = trisomy 13 age-based risk score) trisomy 13 risk score (test code = trisomy 13 risk score) trisomy 13 age-based risk 08/23,389 (0.01%) text (test code = trisomy 13 age-based risk text) trisomy 13 risk score text n/a (test code = trisomy 13 risk score text) trisomy 13 age-based risk fraction (test code = trisomy 13 age-based risk fraction) trisomy 13 risk score fraction (test code = trisomy 13 risk score fraction) trisomy 13 result text (test no result code = trisomy 13 result text) trisomy 13 result comments see notes (test code = trisomy 13 result comments) trisomy 18 age-based risk score (test code = trisomy 18 age-based risk score) trisomy 18 risk score (test code = trisomy 18 risk score) trisomy 18 age-based risk 13,015 (0.03%) text (test code = trisomy 18 age-based risk text) trisomy 18 risk score text n/a (test code = trisomy 18 risk score text) trisomy 18 age-based risk fraction (test code = trisomy 18 age-based risk fraction) trisomy 18 risk score fraction (test code = trisomy 18 risk score fraction) trisomy 18 result text (test no result code = trisomy 18 result text) trisomy 18 result comments see notes (test code = trisomy 18 result comments) trisomy 21 age-based risk score (test code = trisomy 21 age-based risk score) trisomy 21 risk score (test code = trisomy 21 risk score) trisomy 21 age-based risk 08/15,140 (0.09%) text (test code = trisomy 21 age-based risk text) trisomy 21 risk score text n/a (test code = trisomy 21 risk score text) trisomy 21 age-based risk fraction (test code = trisomy 21 age-based risk fraction) trisomy 21 risk score fraction (test code = trisomy 21 risk score fraction) trisomy 21 result text (test no result code = trisomy 21 result text) trisomy 21 result comments see notes (test code = trisomy 21 result comments) monosomy X age-based risk score (test code = monosomy X age-based risk score) monosomy X risk score (test code = monosomy X risk score) monosomy X age-based risk 1568 (0.18%) text (test code = monosomy X age-based risk text) monosomy X risk score text n/a (test code = monosomy X risk score text) monosomy X age-based risk fraction (test code = monosomy X age-based risk fraction) monosomy X risk score fraction (test code = monosomy X risk score fraction) monosomy X result text (test no result code = monosomy X result text) monosomy X result comments see notes (test code = monosomy X result comments) triploidy result text (test no result code = triploidy result text) triploidy result comments see notes (test code = triploidy result comments) gender of fetus (test code = n/a gender of fetus) fraction (in %) (test see notes code = fraction (in %)) fraction (test code = n/a fraction) footnotes (test code = see notes footnotes) boiler plate text (test code see notes = boiler plate text) references (test code = see notes references) approvals (test code = see notes approvals) contacts (test code = see notes contacts) [facility] GroupChromosome 13+18+21+X+Y aneuploidy in Blood by Molecular genetics method [id number] 00:00:00 Test Item Value Reference Range Interpretation Comments report summary (test code = see notes report summary) report note (test code = see notes report note) trisomy 13 age-based risk score (test code = trisomy 13 age-based risk score) trisomy 13 risk score (test code = trisomy 13 risk score) trisomy 13 age-based risk 08/23,389 (0.01%) text (test code = trisomy 13 age-based risk text) trisomy 13 risk score text n/a (test code = trisomy 13 risk score text) trisomy 13 age-based risk fraction (test code = trisomy 13 age-based risk fraction) trisomy 13 risk score fraction (test code = trisomy 13 risk score fraction) trisomy 13 result text (test no result code = trisomy 13 result text) trisomy 13 result comments see notes (test code = trisomy 13 result comments) trisomy 18 age-based risk score (test code = trisomy 18 age-based risk score) trisomy 18 risk score (test code = trisomy 18 risk score) trisomy 18 age-based risk 08/17,015 (0.03%) text (test code = trisomy 18 age-based risk text) trisomy 18 risk score text n/a (test code = trisomy 18 risk score text) trisomy 18 age-based risk fraction (test code = trisomy 18 age-based risk fraction) trisomy 18 risk score fraction (test code = trisomy 18 risk score fraction) trisomy 18 result text (test no result code = trisomy 18 result text) trisomy 18 result comments see notes (test code = trisomy 18 result comments) trisomy 21 age-based risk score (test code = trisomy 21 age-based risk score) trisomy 21 risk score (test code = trisomy 21 risk score) trisomy 21 age-based risk 08/15,140 (0.09%) text (test code = trisomy 21 age-based risk text) trisomy 21 risk score text n/a (test code = trisomy 21 risk score text) trisomy 21 age-based risk fraction (test code = trisomy 21 age-based risk fraction) trisomy 21 risk score fraction (test code = trisomy 21 risk score fraction) trisomy 21 result text (test no result code = trisomy 21 result text) trisomy 21 result comments see notes (test code = trisomy 21 result comments) monosomy X age-based risk score (test code = monosomy X age-based risk score) monosomy X risk score (test code = monosomy X risk score) monosomy X age-based risk 1/568 (0.18%) text (test code = monosomy X age-based risk text) monosomy X risk score text n/a (test code = monosomy X risk score text) monosomy X age-based risk fraction (test code = monosomy X age-based risk fraction) monosomy X risk score fraction (test code = monosomy X risk score fraction) monosomy X result text (test no result code = monosomy X result text) monosomy X result comments see notes (test code = monosomy X result comments) triploidy result text (test no result code = triploidy result text) triploidy result comments see notes (test code = triploidy result comments) gender of fetus (test code = n/a gender of fetus) fraction (in %) (test see notes code = fraction (in %)) fraction (test code = n/a fraction) footnotes (test code = see notes footnotes) boiler plate text (test code see notes = boiler plate text) references (test code = see notes references) approvals (test code = see notes approvals) contacts (test code = see notes contacts) [facility] GroupUrinalysis macro (dipstick) panel - [id number] 14:02:34 Test Item Value Reference Range Interpretation Comments Leukocytes (test code = Leukocytes) Trace Nitrite (test code = Nitrite) negative Urobilinogen (test code = 1 Urobilinogen) Protein (test code = Protein) Negative pH (test code = pH) 6.0 Blood (test code = Blood) Negative Specific [place] (test code = 1.030 Specific [place]) Ketone (test code = Ketone) Negative Bilirubin (test code = Bilirubin) Small Glucose (test code = Glucose) Negative Appearance (test code = Appearance) Clear Color (test code = Color) Yellow [facility] GroupUrinalysis macro (dipstick) panel - [id number] 14:02:34 Test Item Value Reference Range Interpretation Comments Leukocytes (test code = Leukocytes) Trace Nitrite (test code = Nitrite) negative Urobilinogen (test code = 1 Urobilinogen) Protein (test code = Protein) Negative pH (test code = pH) 6.0 Blood (test code = Blood) Negative Specific [place] (test code = 1.030 Specific [place]) Ketone (test code = Ketone) Negative Bilirubin (test code = Bilirubin) Small Glucose (test code = Glucose) Negative Appearance (test code = Appearance) Clear Color (test code = Color) Yellow [facility] GroupUrinalysis macro (dipstick) panel - [id number] 14:02:34 Test Item Value Reference Range Interpretation Comments Leukocytes (test code = Leukocytes) Trace Nitrite (test code = Nitrite) negative Urobilinogen (test code = 1 Urobilinogen) Protein (test code = Protein) Negative pH (test code = pH) 6.0 Blood (test code = Blood) Negative Specific [place] (test code = 1.030 Specific [place]) Ketone (test code = Ketone) Negative Bilirubin (test code = Bilirubin) Small Glucose (test code = Glucose) Negative Appearance (test code = Appearance) Clear Color (test code = Color) Yellow [facility] GroupUrinalysis macro (dipstick) panel - [id number] 14:02:34 Test Item Value Reference Range Interpretation Comments Leukocytes (test code = Leukocytes) Trace Nitrite (test code = Nitrite) negative Urobilinogen (test code = 1 Urobilinogen) Protein (test code = Protein) Negative pH (test code = pH) 6.0 Blood (test code = Blood) Negative Specific [place] (test code = 1.030 Specific [place]) Ketone (test code = Ketone) Negative Bilirubin (test code = Bilirubin) Small Glucose (test code = Glucose) Negative Appearance (test code = Appearance) Clear Color (test code = Color) [facility]Ch[facility]achomat[facility]+Neisseria gonorrhoeae DNA [Presence] in Cervix by Probe and target amplification [id number] 01:59:00 ResultsMataWashington [facility] GroupChlamydia trachomatis+Neisseria gonorrhoeae DNA [Presence] in Cervix by Probe and target amplification [id number] 01:59:00 ResultsMataWashington [facility]erculosis Hospital GroupMicroscopic observation [Identifier] in Cervix by Cyto stain.thin [id number] 01:59:00ResultsMataWashington [facility] GroupChlamydia trachomatis+Neisseria gonorrhoeae DNA [Presence] in Cervix by Probe and target amplification [id number] 01:59:00ResultsMaMay[facility] GroupMicroscopic observation [Identifier] in Cervix by Cyto stain.thin [id number] 01:59:[address] [facility] Grouppregnancy test, [id number] 08:51:00 Test Item Value Reference Range Interpretation Comments Test (test code = positive Test) [facility] Grouppregnancy test, [id number] 08:51:00 Test Item Value Reference Range Interpretation Comments Test (test code = positive Test) [facility] GroupUrinalysis macro (dipstick) panel - [id number] 08:50:00 Test Item Value Reference Range Interpretation Comments Leukocytes (test code = Leukocytes) Small Nitrite (test code = Nitrite) negative Urobilinogen (test code = 1 Urobilinogen) Protein (test code = Protein) Negative pH (test code = pH) 6.5 Blood (test code = Blood) Negative Specific [place] (test code = 1.020 Specific [place]) Ketone (test code = Ketone) Negative Bilirubin (test code = Bilirubin) Negative Glucose (test code = Glucose) Negative Appearance (test code = Appearance) Clear Color (test code = Color) Yellow [facility] GroupUrinalysis macro (dipstick) panel - [id number] 08:50:00 Test Item Value Reference Range Interpretation Comments Leukocytes (test code = Leukocytes) Small Nitrite (test code = Nitrite) negative Urobilinogen (test code = 1 Urobilinogen) Protein (test code = Protein) Negative pH (test code = pH) 6.5 Blood (test code = Blood) Negative Specific [place] (test code = 1.020 Specific [place]) Ketone (test code = Ketone) Negative Bilirubin (test code = Bilirubin) Negative Glucose (test code = Glucose) Negative Appearance (test code = Appearance) Clear Color (test code = Color) Yellow [facility] Auto Differential panel - [id number] 08:30:00 Test Item Value Reference Range Interpretation Comments white blood count (test code = 6.8 K/uL 4.0-11.5 white blood count) red blood count (test code = red 4.43 M/uL 3.80-5.20 blood count) hemoglobin (test code = 12.8 g/dL 10.5-15.7 hemoglobin) hematocrit (test code = 38.4 % 34.0-50.0 hematocrit) Erythrocyte mean corpuscular 86.7 fL 86-100 volume [Entitic volume] (test code = 67068-0) mean corpuscular hemoglobin (test 28.9 pg 26.2-33.4 code = mean corpuscular hemoglobin) mean corpuscular HGB conc (test 33.3 g/dL 30-34 code = mean corpuscular HGB conc) red cell distribution width (test 12.4 % 12.0-15.5 code = red cell distribution width) platelet count (test code = 297 K/uL 165-450 platelet count) mean platelet volume (test code = 11.8 fL 9.4-12.6 mean platelet volume) Neutrophils.segmented/100 71.0 % 44.4-80.1 leukocytes in Blood (test code = 27190-2) Granulocytes Immature [#/volume] 0.0 K/uL 0.0-0.03 in Blood (test code = 52094-5) lymphocyte% (test code = 22.6 % 10.0-50.0 lymphocyte%) mono % (test code = mono %) 4.7 % 3.6-12.0 eos % (test code = eos %) 1.0 % 0.0-5.4 Basophils/100 leukocytes in 0.6 % 0.1-1.2 Unspecified specimen (test code = 58007-4) Neutrophils.band form [#/volume] 4.81 K/uL 1.56-6.13 in Blood (test code = 08635-1) Lymphocytes [#/volume] in 1.5 K/uL 1.18-3.74 Unspecified specimen by Automated count (test code = 17628-9) mono # (test code = mono #) 0.32 K/uL 0.24-0.86 eos # (test code = eos #) 0.07 K/uL 0.04-0.36 basophil # (test code = basophil 0.04 K/uL 0.01-0.08 #) NRBC% (test code = NRBC%) 0 /100 WBC 0-0.2 NRBC# (test code = NRBC#) 0 K/uL [facility] GroupABO & Rh group [Type] in [id number] 08:30:00 Test Item Value Reference Range Interpretation Comments Rh [Type] in Blood (test code = 4+ 60978-9) ABO and Rh group panel - Blood O positive (test code = 91258-2) [facility] GroupBlood group antibody screen [Presence] in Serum or Plasma 2019-08-01 08:30:00 Test Item Value Reference Range Interpretation Comments Blood group antibody screen negative [Presence] in Serum or Plasma (test code = 890-4) [facility] GroupReagin Ab [Presence] in Serum by [id number] 08:30:00 Test Item Value Reference Range Interpretation Comments Reagin Ab [Presence] in Serum by nonreactive nonreactive RPR (test code = 70295-8) [facility] GroupHIV 1+2 Ab [Presence] in [id number] 08:30:00HIV P24 AgHIV-1/2 AbMataWinston Medical CenterHepatitis B virus surface Ag [Presence] in [id number] 08:30:00 Test Item Value Reference Range Interpretation Comments .hepatitis B surface antigen (test negative negative code = .hepatitis B surface antigen) [facility] GroupBacteria identified in Urine by [id number] 08:30:00 Test Item Value Reference Range Interpretation Comments Bacteria identified in no growth after 2 Urine by Culture (test days code = 630-4) [facility] GroupUrinalysis macro (dipstick) panel - [id number] 15:31:12 Test Item Value Reference Range Interpretation Comments Leukocytes (test code = Leukocytes) Negative Nitrite (test code = Nitrite) negative Urobilinogen (test code = .2 Urobilinogen) Protein (test code = Protein) Negative pH (test code = pH) 6.0 Blood (test code = Blood) Negative Specific [place] (test code = 1.030 Specific [place]) Ketone (test code = Ketone) Negative Bilirubin (test code = Bilirubin) Negative Glucose (test code = Glucose) Negative Appearance (test code = Appearance) Clear Color (test code = Color) Yellow [facility]
[2021-09-10 23:55] LABS: Urine Blood Negative (Negative); Urine Glucose Negative (Negative); Urine Protein Negative (Negative); Urine Specific Gravity >=1.030 (1.005-1.030)
[2021-09-11 00:29] LABS: Urine Specific Gravity/Preg >1.030 (1.005-1.030)
--- NOTE | 2021-09-11 02:10 | EDPHYS ---
Physician Documentation [facility] Name: Renita Hair Age: 26 yrs Sex: Female : 1995 Arrival Date: 09/10/2021 Time: 22:59 Bed 6 Private MD: ED Physician Regino Apodaca HPI: 09/11 02:01 This 26 yrs old Female presents to ER via Ambulatory with complaints of pkl SWOLLOW TOOTH PICK. 02:01 The patient or guardian reports the patient has a suspected foreign body, of the pkl throat. The reported likely foreign body is a toothpick. Onset: The symptoms/episode began/occurred just prior to arrival. Patient said she swallowed half a toothpick at dinner. She feels like it may be lodged in the throat. 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 Flu vaccine is not up to date. - Social history:: Smoking status: Patient denies any tobacco usage or history of. ROS: 09/11 02:01 Eyes: Negative for injury, pain, redness, and discharge, ENT: Negative for injury, pkl pain, and discharge, Neck: Negative for injury, pain, and swelling, Cardiovascular: Negative for chest pain, palpitations, and edema, Respiratory: Negative for shortness of breath, cough, wheezing, and pleuritic chest pain, Abdomen/GI: Negative for abdominal pain, nausea, vomiting, diarrhea, and constipation, Back: Negative for injury and pain, : Negative for injury, bleeding, discharge, and swelling, MS/Extremity: Negative for injury and deformity, Skin: Negative for injury, rash, and discoloration, Neuro: Negative for headache, weakness, numbness, tingling, and seizure. Exam: 02:01 Head/Face: Normocephalic, atraumatic. Eyes: Pupils equal round and reactive to light, pkl extra-ocular motions intact. Lids and lashes normal. Conjunctiva and sclera are non-icteric and not injected. Cornea within normal limits. Periorbital areas with no swelling, redness, or edema. ENT: Nares patent. No nasal discharge, no septal abnormalities noted. Tympanic membranes are normal and external auditory canals are clear. Oropharynx with no redness, swelling, or masses, exudates, or evidence of obstruction, uvula midline. Mucous membranes moist. Neck: Trachea midline, no thyromegaly or masses palpated, and no cervical lymphadenopathy. Supple, full range of motion without nuchal rigidity, or vertebral point tenderness. No Meningismus. Chest/axilla: Normal chest wall appearance and motion. Nontender with no deformity. No lesions are appreciated. Cardiovascular: Regular rate and rhythm with a normal S1 and S2. No gallops, murmurs, or rubs. Normal PMI, no JVD. No pulse deficits. Respiratory: Lungs have equal breath sounds bilaterally, clear to auscultation and percussion. No rales, rhonchi or wheezes noted. No increased work of breathing, no retractions or nasal flaring. Abdomen/GI: Soft, non-tender, with normal bowel sounds. No distension or tympany. No guarding or rebound. No evidence of tenderness throughout. Back: No spinal tenderness. No costovertebral tenderness. Full range of motion. Skin: Warm, dry with normal turgor. Normal color with no rashes, no lesions, and no evidence of cellulitis. MS/ Extremity: Pulses equal, no cyanosis. Neurovascular intact. Full, normal range of motion. Neuro: Awake and alert, GCS 15, oriented to person, place, time, and situation. Cranial nerves II-XII grossly intact. Motor strength 5/5 in all extremities. Sensory grossly intact. Cerebellar exam normal. Normal gait. Vital Signs: 09/10 23:17 BP 123 / 87; Pulse 80; Resp 16; Temp 98.0; Pulse Ox 97% on R/A; Weight 68.04 kg; Height tw5 5 ft. 0 in. (152.40 cm); Pain 10/22; 09/11 00:45 BP 125 / 79; Pulse 83; Resp 19; Pulse Ox 98% on R/A; sm5 02:14 BP 129 / 81; Pulse 85; Resp 17; Pulse Ox 99% on R/A; sm5 09/10 23:17 Body Mass Index 29.29 (68.04 kg, 152.40 cm) tw5 MDM: 09/10 23:31 Patient medically screened. pkl 09/11 02:01 Data reviewed: vital signs, nurses notes, radiologic studies, CT scan. ED course: pkl Discussed imaging studies with patient. Advised to follow up with ENT ( Dr. Whipple ) tomorrow . Patient understood instructions. 09/10 23:54 Order name: Urine Dipstick-Ancillary; Complete Time: 00:17 EDMS 09/10 23:55 Order name: Urine --Ancillary (enter results); Complete Time: 01:50 mw2 09/10 23:45 Order name: CT Soft Tissue Neck W/contr pkl 09/10 23:56 Order name: Chest Abdomen Pelvis W Cont EDMS 09/10 23:39 Order name: Urine Test (obtain specimen); Complete Time: 23:52 mk 09/10 23:45 Order name: Saline Lock; Complete Time: 23:54 pkl 09/10 23:50 Order name: Urine Dipstick-Ancillary (obtain specimen); Complete Time: 23:52 mw2 Administered Medications: No medications were administered Disposition Summary: 09/11/21 02:09 Discharge Ordered Location: Home pkl Problem: new pkl Symptoms: have improved pkl Condition: Stable pkl Diagnosis - Swallowed toothpick. Possible F.B. 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 EDMS EDMS 23:58 23:45 Thorax W/ Con+CT.RAD.BRZ ordered. EDMS EDMS
--- NOTE | 2021-09-11 02:10 | ER ---
Nurse's Notes [facility] Name: Renita Hair Age: 26 yrs Sex: Female : 1995 Arrival Date: 09/10/2021 Time: 22:59 Bed 6 Private MD: Diagnosis: Swallowed toothpick. Possible F.B. ( Toothpick ) in throat Presentation: 09/10 23:17 Chief complaint: Patient states: I cooked dinner tonight using toothpicks and I tw5 swallowed half of one. I'm just scared because now my throat feels like there's a lump in it. Coronavirus screen: Vaccine status: Patient reports being unvaccinated. At this time, the client does not indicate any symptoms associated with coronavirus-19. Ebola Screen: No symptoms or risks identified at this time. Initial Sepsis Screen: Does the patient meet any 2 criteria? No. Patient's initial sepsis screen is negative. Does the patient have a suspected source of infection? No. Patient's initial sepsis screen is negative. Risk Assessment: Do you want to hurt yourself or someone else? Patient reports no desire to harm self or others. Onset of symptoms was September 10, 2021. 23:17 Method Of Arrival: Ambulatory tw5 23:17 Acuity: LAY 3 tw5 Triage Assessment: 23:20 Pain: Complains of pain in mid-sternal area and neck Pain does not radiate. Pain vc1 currently is 3 out of 10 on a pain scale. EENT: Reports "Feels like lump in throat". Neuro: No deficits noted. Respiratory: Airway is patent Respiratory effort is even, unlabored, Respiratory pattern is regular. 23:39 General: Appears in no apparent distress. uncomfortable. 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 Flu vaccine is not up to date. - Social history:: Smoking status: Patient denies any tobacco usage or history of. Screenin:23 Abuse screen: Denies threats or abuse. Nutritional screening: No deficits noted. vc1 Tuberculosis screening: No symptoms or risk factors identified. Fall Risk None identified. Assessment: 23:54 General: Appears in no apparent distress. Behavior is cooperative. Pain: Complains of sm5 pain in neck and chest. Neuro: No deficits noted. Level of Consciousness is awake, alert, Oriented to person, place, time, situation. Cardiovascular: No deficits noted. Capillary refill < 3 seconds Patient's skin is warm and dry. Respiratory: No deficits noted. Airway is patent Trachea midline Respiratory effort is even, unlabored. EENT: Reports pain in her neck when swallowing. 09/11 00:57 Reassessment: No changes from previously documented assessment. sm5 01:55 Reassessment: No changes from previously documented assessment. sm5 Vital Signs: 09/10 23:17 BP 123 / 87; Pulse 80; Resp 16; Temp 98.0; Pulse Ox 97% on R/A; Weight 68.04 kg; Height tw5 5 ft. 0 in. (152.40 cm); Pain 3/10; 09/11 00:45 BP 125 / 79; Pulse 83; Resp 19; Pulse Ox 98% on R/A; sm5 02:14 BP 129 / 81; Pulse 85; Resp 17; Pulse Ox 99% on R/A; sm5 09/10 23:17 Body Mass Index 29.29 (68.04 kg, 152.40 cm) tw5 ED Course: 09/10 22:59 Patient arrived in ED. es 23:19 Triage completed. tw5 23:22 Arm band placed on right wrist. vc1 23:23 Patient has correct armband on for positive identification. Pulse ox on. NIBP on. vc1 23:31 Regino Apodaca MD is Attending Physician. pkl 23:54 Inserted saline lock: 20 gauge in right forearm, using aseptic technique. sm5 23:55 Maria E Tran, ITZEL is Primary Nurse. 09/11 00:57 CT Soft Tissue Neck W/contr In Process Unspecified. EDMS 00:57 Chest Abdomen Pelvis W Cont In Process Unspecified. EDMS 02:08 Jesenia Whipple MD is Referral Physician. pkl 02:15 No provider procedures requiring assistance completed. IV discontinued, intact, sm5 bleeding controlled, No redness/swelling at site. Pressure dressing applied. Administered Medications: No medications were administered Outcome: 02:09 Discharge ordered by . em 02:15 Discharged to home ambulatory. [facility] 02:15 Condition: stable 02:15 Discharge instructions given to patient, Instructed on discharge instructions, follow up and referral plans. Demonstrated understanding of instructions, follow-up care. 02:16 Patient left the ED. sm5 Signatures: Dispatcher [employer] Regino Meyer MD MD pkl Salyer, Edna es Wood, Tiffany 5 Vanda Levine RN RN Maria E Quinones RN RN mk Calcote, Vanessa RN RN vc1 Corrections: (The following items were deleted from the chart) 09/10 23:39 23:20 General: Appears in no apparent distress. comfortable, Behavior is calm, mk cooperative, appropriate for age, vc1
[2021-09-11 02:31] VITALS: TEMP 98
[2021-09-11 02:34] VITALS: BP 129/81; O2SAT 99
--- NOTE | 2021-09-11 15:43 | RAD REPORT ---
EXAM DESCRIPTION: 1. CT of the neck soft tissues with contrast 2. CT of the chest, abdomen, and pelvis with contrast CLINICAL HISTORY: Swallow tooth pick COMPARISON: None Available. TECHNIQUE: CT of the neck soft tissues, chest, abdomen and pelvis performed following IV administrat ion of iodinated contrast. This exam was performed according to our departmental dose-optimization pr ogram, which includes automated exposure control, adjustment of the mA and/or kV according to patient size and/or use of iterative reconstruction technique. FINDINGS: Soft tissue neck: Globes and intraorbital contents are unremarkable. No abnormalities of the director traffic and planning or buccal space s. The parotid and submandibular glands are unremarkable. No cervical lymphadenopathy. No abnormaliti es of the carotid or jugular veins. No abnormalities of the parapharyngeal space, pharyngeal mucosal space, or retropharyngeal space. No abnormalities of the epiglottis or larynx. No gross abnormalities of visualized intracranial contents. Chest: Thyroid: No abnormalities of the visualized thyroid. Great Vessels: Great vessels have normal anatomic configuration. Thoracic Aorta: No abnormalities of the thoracic aorta identified. Pulmonary arteries: No filling defects in the pulmonary arteries. Heart: No cardiomegaly, significant pericardial effusion, or coronary artery atherosclerosis Lymph Nodes: No enlarged mediastinal lymph nodes identified. Esophagus: No abnormalities of the esophagus identified no radiopaque foreign body. Other: No pneumomediastinum. Lungs: No airspace opacities identified. Pleura: No pleural effusion or pneumothorax. Trachea/Airways: No abnormalities of the visualized trachea or airways. Abdomen: Liver: The liver has normal size and decreased density. No intrahepatic mass or biliary dilatation. S mall flash filling right hepatic hemangioma. Gallbladder: No calcified gallstones. Spleen, Pancreas, and Adrenal Glands: The spleen, pancreas, and adrenal glands are unremarkable. Kidneys: The kidneys have normal size and contour without evidence of solid mass or hydronephrosis. Vasculature: The aorta and IVC have normal caliber and position. The portal vein is patent. The pro ximal visceral and renal arteries are patent. Stomach: The stomach and duodenum have normal course. Other: No free intraperitoneal air. No fr ee fluid or lymphadenopathy. Pelvis: Bladder: Urinary bladder is unremarkable. Bowel: No dilated loops of large or small bowel. Appendix: Normal appendix. Pelvis: Uterus is not enlarged. Bones: No destructive bone lesions identified. IMPRESSION: 1. No acute inflammatory or obstructive process identified. No abnormality identified in the neck soft tissues. Specifically, no radiopaque or definite linear radiolucent foreign body ident ified. 2. Hepatic steatosis. 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 The interpreting radiologist is fully responsible for the content of the report.
== END 2021-09-11 02:16 | disposition home or self-care (01) ==
LOC: ER 22:50
DX: T18.9XXA Foreign body of alimentary tract, part unspecified, initial encounter (principal)
CPT/HCPCS: 81025; 81003; 71260; 70491; 74177; 99283; Q9967